=== PATIENT | female | born 1980 | race Caucasian/White ===

== ENCOUNTER 2020-02-21 13:14 | Emergency (ER) | payer BC ==
[2020-02-21] MEDS ORDERED: Sodium Chloride 0.9% 10 ML Syringe FLUSH PRN (13:53)
[2020-02-21] MEDS ORDERED: HYDROmorphone 0.5 MG/0.5 ML Syringe IVPUSH ONE ×2 (13:54→16:31)
[2020-02-21] MEDS ORDERED: Sodium Chloride 0.9% 1,000 ML IV SCH (14:00)
--- NOTE | 2020-02-21 15:17 | US ---
Pelvic ultrasound: Multiple real-time images were obtained transvaginally. Comparison: No previous pelvic imaging is available. Uterus is anteverted. Small fibroid is noted anteriorly within the uterine fundus measuring about 1.4 x 1.2 x 1.2 cm. Previous scar is noted from section within the lower uterine segment. Small endometrial abnormality measuring 1.2 cm is seen. Uncertain if this is due to blood clot or represents a polyp. No endometrial thickening is otherwise seen. Follicles are seen within both ovaries. No larger cyst or solid abnormality is appreciated. Minimal fluid within the cul-de-sac which is physiologic is noted. Measurements: Uterus: Length 8.8 cm, AP height 5.5 cm,transverse width 6.4 cm Right ovary: 4.0 x 1.8 x 2.2 cm Left ovary: 3.5 x 2.2 x 2.6 cm Impression: 1. Small fundal fibroid. 2. Questionable blood clot versus polyp within the endometrial cavity measuring 1.2 cm. 3. No additional abnormality is seen. Diagnostic code #3 This report was dictated in MDT
--- NOTE | 2020-02-21 17:05 | EDM.PDOC ---
ED HPI GENERAL MEDICAL PROBLEM - General Chief Complaint: Abdominal Pain Stated Complaint: LOWER ABDOMINAL PAIN Time Seen by Provider: 02/21/20 13:31 Source of Information: Reports: Patient History Limitations: Reports: No Limitations - History of Present Illness INITIAL COMMENTS - FREE TEXT/NARRATIVE: The patient presents with lower abdominal pain. This started yesterday with lower back pain and then went to her lower abdomen and pelvis. She has no nausea, vomiting, fever, chills, cough, congestion, runny nose, chest pain, shortness of breath, dysuria or hematuria. She has no diarrhea. She did have tubal ligation and DNC years ago. She should not be . She does run but she does not remember injuring herself in anyway. She has no vaginal discharge, spotting or discharge. Onset: Gradual Duration: Day(s): (Yesterday) Location: Reports: Abdomen, Pelvis Quality: Reports: Sharp Severity: Moderate Improves with: Reports: None Worsens with: Reports: None Associated Symptoms: Reports: No Other Symptoms Bilateral Lower Abdominal Pain Score (Numeric/FACES): 4 - Related Data Allergies Allergy/AdvReac Type Severity Reaction Status Date / Time aspirin Allergy Severe Anaphylactic Verified 02/21/20 13:29 Shock Home Meds: Home Meds . 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 Denies: Nausea, Vomiting : Reports: No Symptoms Musculoskeletal: Reports: No Symptoms ED EXAM, GI/ABD - Physical Exam Exam: See Below Exam Limited By: No Limitations General Appearance: Alert, No Apparent Distress Ears: Normal External Exam Nose: Normal Inspection Head: Atraumatic, Normocephalic Respiratory/Chest: No Respiratory Distress, Lungs Clear, Normal Breath Sounds Cardiovascular: Regular Rate, Rhythm, No Edema, No Murmur GI/Abdominal Exam: Soft, No Organomegaly, No Mass, Tender (Mild to moderate tenderness to the lower abdomen) Course - Vital Signs Last Recorded V/S: Last Vital Signs Temp 99.6 F 02/21/20 13:24 Pulse 65 02/21/20 13:24 Resp 18 02/21/20 13:24 BP 121/71 02/21/20 13:24 Pulse Ox 100 02/21/20 13:24 - Orders/Labs/Meds Orders: Active Orders 24 hr Category Date Time Status Peripheral IV Care [RC] . DIRECTED Care 02/21/20 13:54 Active Sodium Chloride 0.9% [Normal Saline] 1,000 ml Med 02/21/20 14:00 Active IV ASDIRECTED Sodium Chloride 0.9% [Saline Flush] Med 02/21/20 13:53 Active 10 ml FLUSH ASDIRECTED PRN Peripheral IV Insertion Adult [OM.PC] Stat Oth 02/21/20 13:53 Ordered Medication Orders Sodium Chloride (Normal Saline) 1,000 mls @ 125 mls/hr IV ASDIRECTED ANGEL Last Admin: 02/21/20 14:18 Dose: 125 mls/hr Documented by: CHEVY Sodium Chloride (Saline Flush) 10 ml FLUSH ASDIRECTED PRN PRN Reason: Keep Vein Open Last Admin: 02/21/20 14:18 Dose: 10 ml Documented by: CHEVY Labs: Laboratory Tests 02/21/20 02/21/20 02/21/20 Range/Units 14:10 14:10 14:10 WBC 8.75 (3.98-10.04) K/mm3 RBC 4.93 (3.98-5.22) M/mm3 Hgb 14.7 (11.2-15.7) gm/dl Hct 43.5 (34.1-44.9) % MCV 88.2 (79.4-94.8) fl MCH 29.8 (25.6-32.2) pg MCHC 33.8 (32.2-35.5) g/dl RDW Std Deviation 39.4 (36.4-46.3) fL Plt Count 206 (182-369) K/mm3 MPV 10.4 (9.4-12.3) fl Neut % (Auto) 75.7 H (34.0-71.1) % Lymph % (Auto) 15.5 L (19.3-51.7) % [place] % (Auto) 7.2 (4.7-12.5) % Eos % (Auto) 0.8 (0.7-5.8) Baso % (Auto) 0.3 (0.1-1.2) % Neut # (Auto) 6.62 H (1.56-6.13) K/mm3 Lymph # (Auto) 1.36 (1.18-3.74) K/mm3 [place] # (Auto) 0.63 H (0.24-0.36) K/mm3 Eos # (Auto) 0.07 (0.04-0.36) K/mm3 Baso # (Auto) 0.03 (0.01-0.08) K/mm3 Sodium 139 (136-145) mEq/L Potassium 3.6 (3.5-5.1) mEq/L Chloride 102 (98-107) mEq/L Carbon Dioxide 30 (21-32) mEq/L Anion Gap 10.6 (5-15) BUN 10 (7-18) mg/dL Creatinine 0.7 (0.55-1.02) mg/dL Est Cr Clr Drug Dosing 105.97 mL/min Estimated GFR (MDRD) > 60 (>60) mL/min BUN/Creatinine Ratio 14.3 (14-18) Glucose 97 (74-106) mg/dL Calcium 9.1 (8.5-10.1) mg/dL Total Bilirubin 0.6 (0.2-1.0) mg/dL AST 11 L (15-37) U/L ALT 20 (14-59) U/L Alkaline Phosphatase 80 (46-116) U/L Total Protein 7.5 (6.4-8.2) g/dl Albumin 4.2 (3.4-5.0) g/dl Globulin 3.3 gm/dL Albumin/Globulin Ratio 1.3 (1-2) HCG, Qual Negative (NEGATIVE) Urine Color (Yellow) Urine Appearance (Clear) Urine pH (5.0-8.0) Ur Specific [place] (1.005-1.030) Urine Protein (Negative) Urine Glucose (UA) (Negative) Urine Ketones (Negative) Urine Occult Blood (Negative) Urine Nitrite (Negative) Urine Bilirubin (Negative) Urine Urobilinogen (0.2-1.0) Ur Leukocyte Esterase (Negative) Urine RBC (0-5) /hpf Urine WBC (0-5) /hpf Ur Squamous Epith Cells (0-5) /hpf Urine Bacteria (FEW) /hpf Urine Mucus (FEW) /hpf 02/21/20 Range/Units 14:30 WBC (3.98-10.04) K/mm3 RBC (3.98-5.22) M/mm3 Hgb (11.2-15.7) gm/dl Hct (34.1-44.9) % MCV (79.4-94.8) fl MCH (25.6-32.2) pg MCHC (32.2-35.5) g/dl RDW Std Deviation (36.4-46.3) fL Plt Count (182-369) K/mm3 MPV (9.4-12.3) fl Neut % (Auto) (34.0-71.1) % Lymph % (Auto) (19.3-51.7) % [place] % (Auto) (4.7-12.5) % Eos % (Auto) (0.7-5.8) Baso % (Auto) (0.1-1.2) % Neut # (Auto) (1.56-6.13) K/mm3 Lymph # (Auto) (1.18-3.74) K/mm3 [place] # (Auto) (0.24-0.36) K/mm3 Eos # (Auto) (0.04-0.36) K/mm3 Baso # (Auto) (0.01-0.08) K/mm3 Sodium (136-145) mEq/L Potassium (3.5-5.1) mEq/L Chloride (98-107) mEq/L Carbon Dioxide (21-32) mEq/L Anion Gap (5-15) BUN (7-18) mg/dL Creatinine (0.55-1.02) mg/dL Est Cr Clr Drug Dosing mL/min Estimated GFR (MDRD) (>60) mL/min BUN/Creatinine Ratio (14-18) Glucose (74-106) mg/dL Calcium (8.5-10.1) mg/dL Total Bilirubin (0.2-1.0) mg/dL AST (15-37) U/L ALT (14-59) U/L Alkaline Phosphatase (46-116) U/L Total Protein (6.4-8.2) g/dl Albumin (3.4-5.0) g/dl Globulin gm/dL Albumin/Globulin Ratio (1-2) HCG, Qual (NEGATIVE) Urine Color Yellow (Yellow) Urine Appearance Clear (Clear) Urine pH 6.5 (5.0-8.0) Ur Specific [place] 1.020 (1.005-1.030) Urine Protein Negative (Negative) Urine Glucose (UA) Negative (Negative) Urine Ketones Negative (Negative) Urine Occult Blood Negative (Negative) Urine Nitrite Negative (Negative) Urine Bilirubin Negative (Negative) Urine Urobilinogen 0.2 (0.2-1.0) Ur Leukocyte Esterase Negative (Negative) Urine RBC Not seen (0-5) /hpf Urine WBC Not seen (0-5) /hpf Ur Squamous Epith Cells 0-5 (0-5) /hpf Urine Bacteria Rare (FEW) /hpf Urine Mucus Few (FEW) /hpf Meds: Medications Generic Name Dose Route Start Last Admin Trade Name Freq PRN Reason Stop Dose Admin Sodium Chloride 1,000 mls @ 125 mls/hr 02/21/20 14:00 02/21/20 14:18 Normal Saline IV 125 mls/hr ASDIRECTED ANGEL Administration Sodium Chloride 10 ml 02/21/20 13:53 02/21/20 14:18 Saline Flush FLUSH 10 ml ASDIRECTED PRN Administration Keep Vein Open Discontinued Medications Generic Name Dose Route Start Last Admin Trade Name Freq PRN Reason Stop Dose Admin Hydromorphone HCl 0.25 mg 02/21/20 13:54 02/21/20 14:16 Dilaudid IVPUSH 02/21/20 13:55 0.25 mg ONETIME ONE Administration Hydromorphone HCl 0.5 mg 02/21/20 16:31 02/21/20 16:41 Dilaudid IVPUSH 02/21/20 16:32 0.5 mg ONETIME ONE Administration - Re-Assessments/Exams Free Text/Narrative Re-Assessment/Exam: 02/21/20 17:05 I ordered an IV NS 1L bolus, dilaudid 0.25mg IV, labs, UA and an US. Her CBC and CMP look good. 02/21/20 17:11 Her UA shows no UTI. Her HCG is negative. The US shows small fundal fibroid. Questionable blood clot versus polyp within the endometrial cavity measuring 1.2cm. No additional abnormality is seen. Departure - Departure Time of Disposition: 17:15 Disposition: Home, Self-Care 01 Condition: Good Clinical Impression: Pelvic pain - Discharge Information *PRESCRIPTION DRUG MONITORING PROGRAM REVIEWED*: Not Applicable *COPY OF PRESCRIPTION DRUG MONITORING REPORT IN PATIENT JAROD: Not Applicable Referrals: Ct Linares NP [Primary Care Provider] - 3 Days Forms: ED Department Discharge Additional Instructions: Take tylenol or motrin for pain. Try ice or heat which ever feels better. Follow up with Ct in a couple of days. Please return if you are worse. Sepsis Event Note (ED) - Evaluation Sepsis Screening Result: No Definite Risk - Focused Exam Vital Signs: Vital Signs Temp Pulse Resp BP Pulse Ox 02/21/20 13:24 99.6 F 65 18 121/71 100 - My Orders Last 24 Hours: My Active Orders 02/21/20 13:53 Sodium Chloride 0.9% [Saline Flush] 10 ml FLUSH ASDIRECTED PRN Peripheral IV Insertion Adult [OM.PC] Stat 02/21/20 13:54 Peripheral IV Care [RC] . DIRECTED 02/21/20 14:00 Sodium Chloride 0.9% [Normal Saline] 1,000 ml IV ASDIRECTED - Assessment/Plan Last 24 Hours: My Active Orders 02/21/20 13:53 Sodium Chloride 0.9% [Saline Flush] 10 ml FLUSH ASDIRECTED PRN Peripheral IV Insertion Adult [OM.PC] Stat 02/21/20 13:54 Peripheral IV Care [RC] . DIRECTED 02/21/20 14:00 Sodium Chloride 0.9% [Normal Saline] 1,000 ml IV ASDIRECTED
== END 2020-02-21 17:52 | disposition home or self-care (01) ==
LOC: JD.ED 13:14
DX: R10.2 Pelvic and perineal pain (principal); Z88.6 Allergy status to analgesic agent
CPT/HCPCS: 36415; 76830; 80053; 81001; 84703; 85025; 96374; 96376; 99284; J1170; J7030; 99283